=== PATIENT | female | born 1965 | race Caucasian/White ===

== ENCOUNTER 2020-02-02 16:32 | Outpatient (CLI) | payer BC ==
[~2020-02-02 16:32] MED LIST: FAMO-117 PO; FLUO90CA4 PO; IBUP-1984 PO; MULT1TAB74 PO; [UNRECOGNIZED DRUG - CODE] PO
== END 2020-02-02 23:59 | disposition home or self-care (01) ==
LOC: LAB 16:32
PROVIDERS: ATTEND Nurse Practitioner Family
DX: R05 Cough (principal)
CPT/HCPCS: 71046